=== PATIENT | female | born 1985 | race Caucasian/White ===

== ENCOUNTER 2016-02-24 13:32 | Emergency (ER) | payer OTHER ==
[2016-02-24] MEDS ORDERED: NORCO, ANEXSIA 5/325MG TABLET (HYDROcodone/ACETAMINOPHEN) As Ordered ONE (15:13)
--- NOTE | 2016-02-24 15:59 | REP ---
Chest x-ray: Two views. History: Trauma. . Comparison study: No comparison chest x-ray . Findings: The lungs are well inflated and free of infiltrate. The pleural angles are sharp. The heart size is normal. Pulmonary vasculature is not increased. No significant bony abnormality is seen. Impression: Negative chest x-ray. Signed by Prasanth Miramontes MD 02/24/2016 03:50 P
--- NOTE | 2016-02-24 16:34 | EDDOCDS ---
Physician Documentation [facility] Name: Madina Card Age: 30 yrs Sex: Female : 1985 Arrival Date: 02/24/2016 Time: 13:32 Bed I6 / 28 Private MD: Yanci Dsouza A Disposition: 02/24/16 16:29 Discharged to Home/Self Care. Impression: Fall due to ice and snow, Contusion of back wall of thorax, Strain of muscle, fascia and tendon at neck level. - Condition is Stable. - Discharge Instructions: Contusion, Cervical Sprain. - Prescriptions for Naprosyn 500 mg Oral Tablet - take 1 tablet by ORAL route 2 times per day take with food; 30 tablet. Cyclobenzaprine 10 mg Oral Tablet - take 1 tablet by ORAL route 3 times per day As needed; 15 tablet. - Work Release Form - 2 day, Medication Reconciliation, Local Pharmacy Hours form. - Follow up: Emergency Department; When: As needed; Reason: Worsening of conditions. Follow up: Yanci Dsouza; When: Call to arrange an appointment; Reason: Wound/Symptom Recheck, Recheck today's complaints, Worsening of conditions, Continuance of care. - Problem is new. - Symptoms have improved. Historical: - Allergies: PENICILLINS; - Home Meds: 1. none - PMHx: none; - PSHx: Cesearean Section; - Social history: Smoking status: Patient uses tobacco products, current every day smoker. No barriers to communication noted, The patient speaks fluent Chilean, Speaks appropriately for age. - Family history: Not pertinent. - : The pt / caregiver states he / she is not on anticoagulants. Home medication list is obtained from the patient. - Exposure Risk Screening:: None identified. ETCHER ENAMELING: 02/23 13:39 LMP N/A - control method kr3 Vital Signs: 13:35 BP 113 / 79; Pulse 98; Resp 18 S; Temp 97.6(O); Pulse Ox 100% on R/A; Weight 51.26 kg / gr2 113.01 lbs (R); Height 5 ft. 1 in. (154.94 cm) (R); Pain 8/10; 16:27 Pain 8/10; kr3 16:33 BP 113 / 67; Pulse 80; Resp 16; Temp 98.5(O); Pulse Ox 100% on R/A; kr3 13:35 Body Mass Index 21.35 (51.26 kg, 154.94 cm) gr2 MDM: 15:00 HYDROcodone-acetaminophen 5 mg-325 mg 2 tabs PO once ordered. cc10 15:02 Spine, Cerv-3 View; No Collar Ordered. EDMS 15:02 Spine. Lumbosacral, Complete Ordered. EDMS 15:02 Chest, 2 View (pa\E\lat) Ordered. EDMS 15:22 [facility] Payment Agreement was scanned into [employer] and attached to record. gjb 15:22 Financial registration complete. gjb Administered Medications: 15:15 Drug: HYDROcodone-acetaminophen 2 tabs [hydrocodone 5 mg-acetaminophen 325 mg tablet (2 kr3 tabs)] Route: PO; 16:27 Follow up: Pain 09/28 Adult; Response: Confirmed pt not driving.; Pain is decreased kr3 Signatures: Dispatcher MedHost EDMS Shyanne Morrow RN RN kr3 Eliceo Campos, PA-C PA-C cc10 Jackeline Acevedo The chart was reviewed and I authenticate all verbal orders and agree with the evaluation and treatment provided.Attachments: 15:22 [facility] Payment Agreement gj MTDD
--- NOTE | 2016-02-24 16:34 | EDDOCDS ---
Nurse's Notes [facility] Name: Madina Card Age: 30 yrs Sex: Female : 1985 Arrival Date: 02/24/2016 Time: 13:32 Bed I6 / 28 Private MD: Yanci Dsouza A Diagnosis: Fall due to ice and snow;Contusion of back wall of thorax;Strain of muscle, fascia and tendon at neck level Presentation: 02/23 13:37 Presenting complaint: Patient states: fell and hit back of head on ground. No LOC. kr3 Reports hit head 'hard hard" and back. Aspirin was not taken prior to arrival. Adult Sepsis Screening: The patient does not have new or worsening altered mentation. Patient's respiratory rate is less than 22. Systolic blood pressure is greater than 100. Patient has a qSOFA score of 0- Negative Sepsis Screen. Suicide/Homicide risk assessment- the patient denies having any suicidal and/or homicidal ideations and does not present with any other emotional, behavioral or mental health complaints. Status: Patient is not a human service coordinator or dependent. Transition of care: patient was not received from another setting of care. 13:37 Acuity: PEACE Level 4 kr3 13:37 Method Of Arrival: Walkin/Carried/Asstd kr3 Triage Assessment: 13:39 General: Appears in no apparent distress, Behavior is appropriate for age, cooperative. kr3 Pain: Location: back of head Pain currently is 10 out of 10 on a pain scale. Pt Declines HIV testing. Neurological: Level of Consciousness is awake, alert, Moves all extremities. Gait is steady, Speech is normal. Cardiovascular: Chest pain is described as Pain is 10 out of 10 on a pain scale. quality is tightness radiates Does not radiate. episodes are continuous began 20 minutes prior to arrival when fell. Respiratory: Respiratory effort is even, unlabored. Musculoskeletal: Reports pain in low back area Pain is 10 out of 10 on a pain scale. KNIFEMAN: 13:39 LMP N/A - control method kr3 Historical: - Allergies: PENICILLINS; - Home Meds: 1. none - PMHx: none; - PSHx: Cesearean Section; - Social history: Smoking status: Patient uses tobacco products, current every day smoker. No barriers to communication noted, The patient speaks fluent Occitan, Speaks appropriately for age. - Family history: Not pertinent. - : The pt / caregiver states he / she is not on anticoagulants. Home medication list is obtained from the patient. - Exposure Risk Screening:: None identified. Screenin:18 Screening information is obtained from the patient. Fall risk: No risks identified. kr3 Assistance ADL's: requires no assistance with activities of daily living. Abuse/DV Screen: The patient / caregiver reports he/she is: not in a situation that causes fear, pain or injury. Nutritional screening: No deficits noted. Advance Directives: Currently, there is no health care proxy. home support is adequate. Assessment: 15:16 Reassessment: Patient appears in no apparent distress at this time. Pain: Location: kr3 back Pain currently is 10 out of 10 on a pain scale. Neurological: Gait is steady. Respiratory: Respiratory effort is even, unlabored. 16:28 Reassessment: Patient states feeling better. Pain: Location: back Pain currently is 8 kr3 out of 10 on a pain scale. Vital Signs: 13:35 BP 113 / 79; Pulse 98; Resp 18 S; Temp 97.6(O); Pulse Ox 100% on R/A; Weight 51.26 kg gr2 (R); Height 5 ft. 1 in. (154.94 cm) (R); Pain 8/10; 16:27 Pain 8/10; kr3 16:33 BP 113 / 67; Pulse 80; Resp 16; Temp 98.5(O); Pulse Ox 100% on R/A; kr3 13:35 Body Mass Index 21.35 (51.26 kg, 154.94 cm) gr2 Vitals: 13:35 Log In Time: February 24, 2016 at 13:35. gr2 ED Course: 13:34 Patient visited by Davin Jacobo. gr2 13:34 Yanci Dsouza is Private Physician. gr2 13:34 Patient moved to Waiting gr2 13:36 Patient visited by Davin Jacobo. gr2 13:36 Patient moved to Pre RCE gr2 13:38 Triage Initiated kr3 14:43 Patient moved to Triage 3 kr3 14:44 [facility] cc10 14:44 Eva Tabares MD is Attending Physician. cc10 14:53 Patient visited by Eliceo Campos PA-C. cc10 14:53 Patient visited by Eliceo Campos PA-C. cc10 15:15 Patient moved to TR1 kr3 15:18 The patient / caregiver is instructed regarding the plan of care and ED course. kr3 Accompanied by Family Member, Patient has correct armband on for positive identification. Cardiac monitoring not applicable on this patient. 15:22 [facility] Payment Agreement was scanned into Hub[employer] and attached to record. gjb 16:00 Patient name changed from Madina\\S\\\\S\\Card\\S\\ to Madina\\S\\ \\S\\Card. EDMS 16:26 Patient moved to I kr3 16:27 Patient visited by Shyanne Morrow RN. kr3 16:27 Chest, 2 View (pa\\E\\lat) Returned. EDMS 16:28 No IV's were initiated during this patient's visit. No procedures done that require kr3 assistance. 16:29 Yanci Dsouza is Referral Physician. cc10 Administered Medications: 15:15 Drug: HYDROcodone-acetaminophen 2 tabs [hydrocodone 5 mg-acetaminophen 325 mg tablet (2 kr3 tabs)] Route: PO; 16:27 Follow up: Pain 8 Adult; Response: Confirmed pt not driving.; Pain is decreased kr3 Order Results: Radiology Order: Chest, 2 View (pa\\E\\lat) Test: Chest, 2 View (pa\\E\\lat) REASON FOR EXAMINATION: Trauma; Chest x-ray: Two views.; ; History: Trauma. .; ; Comparison study: No comparison chest x-ray .; ; Findings: The lungs are well inflated and free of infiltrate. The pleural; angles are sharp. The heart size is normal. Pulmonary vasculature is not; increased. No significant bony abnormality is seen.; ; Impression:; ; Negative chest x-ray.; ; ; Signed by; Prasanth Miramontes MD 02/24/2016 03:50 P; Outcome: 16:28 No special radiology studies were completed. kr3 16:29 Discharge ordered by Provider. cc10 16:33 Discharge Assessment: patient administered narcotics - yes. Pt provided with safe kr3 discharge. The following High Risk Discharge criteria are identified: None. Discharged to home ambulatory. Condition: stable. Discharge instructions given to patient, Instructed on discharge instructions, follow up and referral plans. medication usage, no driving heavy equipment, no drinking with medication, Demonstrated understanding of instructions, medications, Pt was receptive of discharge instructions/ teaching. Prescriptions given X 2, Work note provided to patient. Property sent home with patient. 16:33 Patient left the ED. kr3 Signatures: Dispatcher MedHost EDShyanne RamosRN RN kr3 Davin Jacobo gr2 Eliceo Campos PA-C PAJace cc10 Jackeline Acevedo MTDEmily
--- NOTE | 2016-02-24 16:46 | REP ---
LUMBOSACRAL SPINE: Five views of the lumbosacral spine are performed. There is no compression fracture or malalignment with normal lumbar lordosis. There is no spondylolysis or spondylolisthesis. Disc spaces are well preserved. Posterior elements are intact. IMPRESSION: No fracture or dislocation. Signed by Peewee Carranza MD 02/25/2016 01:26 P
--- NOTE | 2016-02-24 16:49 | REP ---
CERVICAL SPINE, AP AND LATERAL: AP and lateral views of the cervical spine are performed including a swimmer's view. C7 vertebral body is not visualized. Other visualized cervical vertebral bodies appear normal in height and well aligned. There is otherwise no definite fracture or dislocation. Visualized disc spaces are normal in appearance. Odontoid appears intact radiographically. IMPRESSION: No definite fracture or dislocation. C7 vertebral body is not visualized. CT of the cervical spine would be needed to exclude fracture. Signed by Peewee Carranza MD 02/25/2016 01:26 P
--- NOTE | 2016-02-26 17:35 | EDDOCDS ---
Physician Documentation [facility] Name: Madina Card Age: 30 yrs Sex: Female : 1985 Arrival Date: 02/24/2016 Time: 13:32 Bed I6 / 28 Private MD: Yanci Dsouza A Disposition: 02/24/16 16:29 Discharged to Home/Self Care. Impression: Fall due to ice and snow, Contusion of back wall of thorax, Strain of muscle, fascia and tendon at neck level. - Condition is Stable. - Discharge Instructions: Contusion, Cervical Sprain. - Prescriptions for Naprosyn 500 mg Oral Tablet - take 1 tablet by ORAL route 2 times per day take with food; 30 tablet. Cyclobenzaprine 10 mg Oral Tablet - take 1 tablet by ORAL route 3 times per day As needed; 15 tablet. - Work Release Form - 2 day, Medication Reconciliation, Local Pharmacy Hours form. - Follow up: Emergency Department; When: As needed; Reason: Worsening of conditions. Follow up: Yanci Dsouza; When: Call to arrange an appointment; Reason: Wound/Symptom Recheck, Recheck today's complaints, Worsening of conditions, Continuance of care. - Problem is new. - Symptoms have improved. Historical: - Allergies: PENICILLINS; - Home Meds: 1. none - PMHx: none; - PSHx: Cesearean Section; - Social history: Smoking status: Patient uses tobacco products, current every day smoker. No barriers to communication noted, The patient speaks fluent Tristanian, Speaks appropriately for age. - Family history: Not pertinent. - : The pt / caregiver states he / she is not on anticoagulants. Home medication list is obtained from the patient. - Exposure Risk Screening:: None identified. LPN RN HOSPICE: 02/23 13:39 LMP N/A - control method kr3 Vital Signs: 13:35 BP 113 / 79; Pulse 98; Resp 18 S; Temp 97.6(O); Pulse Ox 100% on R/A; Weight 51.26 kg / gr2 113.01 lbs (R); Height 5 ft. 1 in. (154.94 cm) (R); Pain 8/10; 16:27 Pain 8/10; kr3 16:33 BP 113 / 67; Pulse 80; Resp 16; Temp 98.5(O); Pulse Ox 100% on R/A; kr3 13:35 Body Mass Index 21.35 (51.26 kg, 154.94 cm) gr2 MDM: 15:00 HYDROcodone-acetaminophen 5 mg-325 mg 2 tabs PO once ordered. cc10 15:02 Spine, Cerv-3 View; No Collar Ordered. EDMS 15:02 Spine. Lumbosacral, Complete Ordered. EDMS 15:02 Chest, 2 View (pa\E\lat) Ordered. EDMS 15:22 [facility] Payment Agreement was scanned into [employer] and attached to record. gjb 15: Financial registration complete. gjb 02/24 07:27 T-Sheet-- Draft Copy was scanned into [employer] and attached to record. gb Administered Medications: 02/23 15:15 Drug: HYDROcodone-acetaminophen 2 tabs [hydrocodone 5 mg-acetaminophen 325 mg tablet (2 kr3 tabs)] Route: PO; 16:27 Follow up: Pain 8/10 Adult; Response: Confirmed pt not driving.; Pain is decreased kr3 Signatures: Dispatcher MedHost EDMS Jannette Dorman, Reg Reg gb Shyanne Morrow,RN RN kr3 Eliceo Campos PA-C PAMayeC cc10 Jackeline Acevedo The chart was reviewed and I authenticate all verbal orders and agree with the evaluation and treatment provided.Attachments: 15:22 [facility] Payment Agreement [facility] 02/24 07:27 T-Sheet-- Draft Copy gb Chart Complete MTDD
--- NOTE | 2016-02-26 17:35 | EDDOCDS ---
Nurse's Notes [facility] Name: Madina Card Age: 30 yrs Sex: Female : 1985 Arrival Date: 02/24/2016 Time: 13:32 Bed I6 / 28 Private MD: Yanci Dsouza A Diagnosis: Fall due to ice and snow;Contusion of back wall of thorax;Strain of muscle, fascia and tendon at neck level Presentation: 02/23 13:37 Presenting complaint: Patient states: fell and hit back of head on ground. No LOC. kr3 Reports hit head 'hard hard" and back. Aspirin was not taken prior to arrival. Adult Sepsis Screening: The patient does not have new or worsening altered mentation. Patient's respiratory rate is less than 22. Systolic blood pressure is greater than 100. Patient has a qSOFA score of 0- Negative Sepsis Screen. Suicide/Homicide risk assessment- the patient denies having any suicidal and/or homicidal ideations and does not present with any other emotional, behavioral or mental health complaints. Status: Patient is not a customer services supervisor or dependent. Transition of care: patient was not received from another setting of care. 13:37 Acuity: PEACE Level 4 kr3 13:37 Method Of Arrival: Walkin/Carried/Asstd kr3 Triage Assessment: 13:39 General: Appears in no apparent distress, Behavior is appropriate for age, cooperative. kr3 Pain: Location: back of head Pain currently is 10 out of 10 on a pain scale. Pt Declines HIV testing. Neurological: Level of Consciousness is awake, alert, Moves all extremities. Gait is steady, Speech is normal. Cardiovascular: Chest pain is described as Pain is 10 out of 10 on a pain scale. quality is tightness radiates Does not radiate. episodes are continuous began 20 minutes prior to arrival when fell. Respiratory: Respiratory effort is even, unlabored. Musculoskeletal: Reports pain in low back area Pain is 10 out of 10 on a pain scale. CONTACT REPRESENTATIVE: 13:39 LMP N/A - control method kr3 Historical: - Allergies: PENICILLINS; - Home Meds: 1. none - PMHx: none; - PSHx: Cesearean Section; - Social history: Smoking status: Patient uses tobacco products, current every day smoker. No barriers to communication noted, The patient speaks fluent Lithuanian, Speaks appropriately for age. - Family history: Not pertinent. - : The pt / caregiver states he / she is not on anticoagulants. Home medication list is obtained from the patient. - Exposure Risk Screening:: None identified. Screenin:18 Screening information is obtained from the patient. Fall risk: No risks identified. kr3 Assistance ADL's: requires no assistance with activities of daily living. Abuse/DV Screen: The patient / caregiver reports he/she is: not in a situation that causes fear, pain or injury. Nutritional screening: No deficits noted. Advance Directives: Currently, there is no health care proxy. home support is adequate. Assessment: 15:16 Reassessment: Patient appears in no apparent distress at this time. Pain: Location: kr3 back Pain currently is 10 out of 10 on a pain scale. Neurological: Gait is steady. Respiratory: Respiratory effort is even, unlabored. 16:28 Reassessment: Patient states feeling better. Pain: Location: back Pain currently is 8 kr3 out of 10 on a pain scale. Vital Signs: 13:35 BP 113 / 79; Pulse 98; Resp 18 S; Temp 97.6(O); Pulse Ox 100% on R/A; Weight 51.26 kg gr2 (R); Height 5 ft. 1 in. (154.94 cm) (R); Pain 8/10; 16:27 Pain 8/10; kr3 16:33 BP 113 / 67; Pulse 80; Resp 16; Temp 98.5(O); Pulse Ox 100% on R/A; kr3 13:35 Body Mass Index 21.35 (51.26 kg, 154.94 cm) gr2 Vitals: 13:35 Log In Time: February 24, 2016 at 13:35. gr2 ED Course: 13:34 Patient visited by Davin Jacobo. gr2 13:34 Yanci Dsouza is Private Physician. gr2 13:34 Patient moved to Waiting gr2 13:36 Patient visited by Davin Jacobo. gr2 13:36 Patient moved to Pre RCE gr2 13:38 Triage Initiated kr3 14:43 Patient moved to Triage 3 kr3 14:44 [facility]ice[facility] Campos [facility] cc[facility] 14:44 Eva Tabares MD is Attending Physician. cc10 14:53 Patient visited by Eliceo Campos PA-C. cc10 14:53 Patient visited by Eliceo Campos PA-C. cc10 15:15 Patient moved to TR1 kr3 15:18 The patient / caregiver is instructed regarding the plan of care and ED course. kr3 Accompanied by Family Member, Patient has correct armband on for positive identification. Cardiac monitoring not applicable on this patient. 15:22 [facility] Payment Agreement was scanned into [employer] and attached to record. gjb 16:00 Patient name changed from Madina\\S\\\\S\\Card\\S\\ to Madina\\S\\ \\S\\Card. EDMS 16:26 Patient moved to I6 kr3 16:27 Patient visited by Shyanne Morrow RN. kr3 16:27 Chest, 2 View (pa\\E\\lat) Returned. EDMS 16:28 No IV's were initiated during this patient's visit. No procedures done that require kr3 assistance. 16:29 Yanci Dsouza is Referral Physician. cc10 17:18 Spine. Lumbosacral, Complete Returned. EDMS 17:18 Spine, Cerv-3 View; No Collar Returned. EDMS 01 07:27 T-Sheet-- Draft Copy was scanned into [employer] and attached to record. gb Administered Medications: 02/23 15:15 Drug: HYDROcodone-acetaminophen 2 tabs [hydrocodone 5 mg-acetaminophen 325 mg tablet (2 kr3 tabs)] Route: PO; 16:27 Follow up: Pain 8/10 Adult; Response: Confirmed pt not driving.; Pain is decreased kr3 Order Results: Radiology Order: Spine, Cerv-3 View; No Collar Test: Spine, Cerv-3 View; No Collar REASON FOR EXAMINATION: Trauma; CERVICAL SPINE, AP AND LATERAL:; ; AP and lateral views of the cervical spine are performed including a swimmer's; view.; ; C7 vertebral body is not visualized. Other visualized cervical vertebral bodies; appear normal in height and well aligned. There is otherwise no definite fracture; or dislocation. Visualized disc spaces are normal in appearance. Odontoid appears; intact radiographically.; ; IMPRESSION:; ; No definite fracture or dislocation. C7 vertebral body is not visualized. CT of; the cervical spine would be needed to exclude fracture.; ; ; Signed by; Peewee Carranza MD 02/25/2016 01:26 P; Radiology Order: Spine. Lumbosacral, Complete Test: Spine. Lumbosacral, Complete REASON FOR EXAMINATION: Trauma; LUMBOSACRAL SPINE:; ; Five views of the lumbosacral spine are performed. There is no compression; fracture or malalignment with normal lumbar lordosis. There is no spondylolysis; or spondylolisthesis. Disc spaces are well preserved. Posterior elements are; intact.; ; IMPRESSION:; ; No fracture or dislocation.; ; ; Signed by; Peewee Carranza MD 02/25/2016 01:26 P; Radiology Order: Chest, 2 View (pa\\E\\lat) Test: Chest, 2 View (pa\\E\\lat) REASON FOR EXAMINATION: Trauma; Chest x-ray: Two views.; ; History: Trauma. .; ; Comparison study: No comparison chest x-ray .; ; Findings: The lungs are well inflated and free of infiltrate. The pleural; angles are sharp. The heart size is normal. Pulmonary vasculature is not; increased. No significant bony abnormality is seen.; ; Impression:; ; Negative chest x-ray.; ; ; Signed by; Prasanth Miramontes MD 02/24/2016 03:50 P; Outcome: 16:28 No special radiology studies were completed. kr3 16:29 Discharge ordered by Provider. cc10 16:33 Discharge Assessment: patient administered narcotics - yes. Pt provided with safe kr3 discharge. The following High Risk Discharge criteria are identified: None. Discharged to home ambulatory. Condition: stable. Discharge instructions given to patient, Instructed on discharge instructions, follow up and referral plans. medication usage, no driving heavy equipment, no drinking with medication, Demonstrated understanding of instructions, medications, Pt was receptive of discharge instructions/ teaching. Prescriptions given X 2, Work note provided to patient. Property sent home with patient. 16:33 Patient left the ED. kr3 Signatures: Dispatcher [employer] EDMS Jannette Dorman, Shyanne Rascon,RN RN kr3 Davin Jacobo gr2 Eliceo Campos, PA-C PA-C cc10 Jackeline Acevedo Chart Complete MTDD
--- NOTE | 2016-02-26 17:35 | EDDOCDS ---
Physician Documentation [facility] Name: Madina Card Age: 30 yrs Sex: Female : 1985 Arrival Date: 02/24/2016 Time: 13:32 Bed I6 / 28 Private MD: Yanci Dsouza A Disposition: 02/24/16 16:29 Discharged to Home/Self Care. Impression: Fall due to ice and snow, Contusion of back wall of thorax, Strain of muscle, fascia and tendon at neck level. - Condition is Stable. - Discharge Instructions: Contusion, Cervical Sprain. - Prescriptions for Naprosyn 500 mg Oral Tablet - take 1 tablet by ORAL route 2 times per day take with food; 30 tablet. Cyclobenzaprine 10 mg Oral Tablet - take 1 tablet by ORAL route 3 times per day As needed; 15 tablet. - Work Release Form - 2 day, Medication Reconciliation, Local Pharmacy Hours form. - Follow up: Emergency Department; When: As needed; Reason: Worsening of conditions. Follow up: Yanci Dsouza; When: Call to arrange an appointment; Reason: Wound/Symptom Recheck, Recheck today's complaints, Worsening of conditions, Continuance of care. - Problem is new. - Symptoms have improved. Historical: - Allergies: PENICILLINS; - Home Meds: 1. none - PMHx: none; - PSHx: Cesearean Section; - Social history: Smoking status: Patient uses tobacco products, current every day smoker. No barriers to communication noted, The patient speaks fluent Kyrgyz, Speaks appropriately for age. - Family history: Not pertinent. - : The pt / caregiver states he / she is not on anticoagulants. Home medication list is obtained from the patient. - Exposure Risk Screening:: None identified. NIGHT CLEANER: 02/23 13:39 LMP N/A - control method kr3 Vital Signs: 13:35 BP 113 / 79; Pulse 98; Resp 18 S; Temp 97.6(O); Pulse Ox 100% on R/A; Weight 51.26 kg / gr2 113.01 lbs (R); Height 5 ft. 1 in. (154.94 cm) (R); Pain 8/10; 16:27 Pain 8/10; kr3 16:33 BP 113 / 67; Pulse 80; Resp 16; Temp 98.5(O); Pulse Ox 100% on R/A; kr3 13:35 Body Mass Index 21.35 (51.26 kg, 154.94 cm) gr2 MDM: 15:00 HYDROcodone-acetaminophen 5 mg-325 mg 2 tabs PO once ordered. cc10 15:02 Spine, Cerv-3 View; No Collar Ordered. EDMS 15:02 Spine. Lumbosacral, Complete Ordered. EDMS 15:02 Chest, 2 View (pa\E\lat) Ordered. EDMS 15:22 [facility] Payment Agreement was scanned into [employer] and attached to record. gjb 15: Financial registration complete. gjb 02/24 07:27 T-Sheet-- Draft Copy was scanned into [employer] and attached to record. gb Administered Medications: 02/23 15:15 Drug: HYDROcodone-acetaminophen 2 tabs [hydrocodone 5 mg-acetaminophen 325 mg tablet (2 kr3 tabs)] Route: PO; 16:27 Follow up: Pain 8/10 Adult; Response: Confirmed pt not driving.; Pain is decreased kr3 Signatures: Dispatcher [employer] EDMS Jannette Dorman, Reg Reg gb Shyanne Morrow,RN RN kr3 Eliceo Campos PA-C PAMayeC cc10 Jackeline Acevedo The chart was reviewed and I authenticate all verbal orders and agree with the evaluation and treatment provided.Attachments: 15:22 [facility] Payment Agreement [facility] 02/24 07:27 T-Sheet-- Draft Copy gb Chart Complete MTDD
== END 2016-02-24 16:33 | disposition home or self-care (01) ==
LOC: M ED 13:32
DX: S00.83XA Contusion of other part of head, initial encounter (principal); S10.93XA Contusion of unspecified part of neck, initial encounter; S20.229A Contusion of unspecified back wall of thorax, initial encounter; W00.9XXA Unspecified fall due to ice and snow, initial encounter; Y92.410 Unspecified street and highway as the place of occurrence of the external cause; Y93.89 Activity, other specified; Y99.8 Other external cause status; Z72.0 Tobacco use; Z88.0 Allergy status to penicillin

== ENCOUNTER → 2018-09-09 | Outpatient (REF) | payer OTHER | LOC: M SFHCLERA 20:08 | PROVIDERS: ATTEND Physician Assistant | DX: J03.90 Acute tonsillitis, unspecified (principal) ==